=== PATIENT | male | born 1985 | race Caucasian/White ===

== ENCOUNTER 2024-11-13 11:19 | Emergency (ER) | payer OTHER, SELFPAY ==
--- NOTE | ~2024-11-13 | US_ITS ---
TESTICULAR ULTRASOUND (Doppler ultrasound interrogation techniques used as needed for this exam.) Ordering provider: Letitia Byrd MD History: . testicular pain . Comparison: None. FINDINGS: TESTICLES: Normal in size. The right measures 4 x 2.2x 2.9 cm and the left measures 3.5x 2.6x 2.7 cm. Normal echogenicity bilaterally without mass lesion. Normal Doppler flow bilaterally. Appendix test is is seen measuring 0.6 x 0.5 x 0.7 cm. Increased vascularity in the left testis. EPIDIDYMIDES: The right is Normal in size.. The left is enlarged heterogenous in the temporal area No rmal echogenicity bilaterally. Both demonstrate normal Doppler flow. HYDROCELE: Small right and septated large left VARICOCELE: None. OTHER ABNORMALITY: None seen. IMPRESSION: left epididymitis with possible epididymoorchitis. Bilateral hydrocele larger on the left with septat ion. Otherwise, normal testicular ultrasound. Reviewed, dictated and finalized at location A. IMPRESSION: left epididymitis with possible epididymoorchitis. Bilateral hydrocele larger o n the left with septation. Otherwise, normal testicular ultrasound.
[2024-11-13 11:37] VITALS: BP 168/100; PULSE 92; RESP 16; TEMP 36.8; O2SAT 100
--- OUTSIDE RECORDS SUMMARY | 2024-11-13 12:28 | XMS_ITS | Clinical Summary ---
Author Organization [facility] [employer] Address [address] [place] [address] Care Team Providers Care Mine Safety Engineer Name Role Phone Tu Richardson MD Primary Care Provider [phone] Source Comments [facility] [employer],non-owned Affiliates and Associated Physician Practices is amultiple site organization consisting of ambulatory clinics and hospital sitesin [place], [place], [place] and [place]. This disclosure is being madepursuant to the Care Everywhere program and may not contain all information available regarding this patient. Last updated 18.[facility] [employer] Allergies Active Allergy Reactions Criticality Noted Date Comments Cefaclor Rash Medium 08/19/2013 Active Problems Problem Noted Date Diagnosed Date Fracture of other specified skull and facial bones, right side, initial encounter for closed fracture 09/23/2013 Closed fracture of malar bone 09/23/2013 Closed fracture of maxillary bone 09/23/2013 Contusion of lung 08/27/2013 Laceration of spleen 08/27/2013 Pneumonitis due to inhalation of food and vomit 08/27/2013 Other fracture of base of sk ull, initial encounter for closed fracture 08/27/2013 Closed fracture of thoracic vertebra 08/27/2013 Unspecified fracture of shaf t of left tibia, initial encounter for open fracture type I or II 08/27/2013 Closed fracture of rib of right side 08/27/2013 Hypoxemia 08/27/2013 Hemothorax 08/27/2013 Immunizations Immunization Administration Dates Next Due TD (ADULT), 5 LF TETANUS TOXOID, ADSORBED, PF Social History Tobacco Use Types Packs/Day Years Used Date Smoking Tobacco: Every Day Alcohol Use Standard Drinks/Week Comments Yes 0 (1 standard drink = 0.6 oz pur e alcohol) Sex and Gender Information Value Date Recorded Sex Assigned at Not on file 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 Gender Identity Not on file Sexual Orientation Not on file Last Filed Vital Signs Vital Sign Reading Time Taken Comments Blood Pressure 110/70 11/30/2013 11:41 AM CDT Pulse 66 09/22/2013 9:56 AM CDT Temperature 36.3 C (97.4 F) 12/21/2013 9:58 AM CDT Respiratory Rate 18 08/27/2013 8:11 AM CDT Oxygen Saturation 98% 08/27/2013 8:11 AM CDT Inhaled Oxygen Concentration - - Weight 66.2 kg (146 lb) 12/21/2013 9:58 AM CDT Height 182.9 cm (6') 12/21/2013 9:58 AM CDT Body Mass Index 19.8 12/21/2013 9:58 AM CDT Plan of Treatment Health Maintenance Due Date Last Done Comments HIV SCREENING 09/04/2002 HEPATITIS C SCREENING 08/31/2005 HEPATITIS B VACCINE (1 of 3 - 19+ 3-dose series) 09/04/2006 HPV VACCINE (1 - 3-dose SCDM series) 09/04/2014 DTAP/TDAP/TD VACCINES (2 - T d or Tdap) 08/20/2023 08/19/2013 COVID-19 VACCINE (1 - 2023-2 5 season) 2024 DEPRESSION SCREENING 05/03/2024 INFLUENZA VACCINE (#1) 2025 ZOSTER VACCINE (1 of 2) 09/04/2037 HIB VACCINE Aged Out No longer eligi ble based on patient's age to complete this topic MENINGOCOCCAL (Group B) VACC INE SHARED DECISION-MAKING Aged Out No longer eligibl e based on patient's age to complete this topic MENINGOCOCCAL GROUPS A/C/Y/W VACCINE Aged Out No longer eligible b ased on patient's age to complete this topic PNEUMOCOCCAL VACCINE Aged Out No long er eligible based on patient's age to complete this topic Care Teams Mine Safety Engineer Relationship Specialty Start Date End Date Tu Richardson MD PCP - General 08/28/13
--- OUTSIDE RECORDS SUMMARY | 2024-11-13 12:29 | XMS_ITS | Clinical Summary ---
Author Organization [facility] Address [address] [place] [address] Care Team Providers Care Prototype Special Build Name Role Phone None, Provider MD Primary Care Provider Unavaila ble Allergies Active Allergy Reactions Criticality Noted Date Comments Cefaclor Unknown 07/14/2022 Medications diclofenac EC (VOLTAREN) 75 MG tablet Take 1 tablet (75 mg total) by mouth 2 (two) times daily. 60 tablet 07/14/2022 Active methocarbamol (ROBAXIN) 750 MG Tab Take 1 tablet (750 mg total) by mouth every 4 (four) hours. 30 tablet 07/14/2022 Active Social History Tobacco Use Types Packs/Day Years Used Date Smoking Tobacco: Every Day Cigarettes Smokeless Tobacco: Never Tobacco Cessation:Ready to Q uit: Not Asked; Counseling Given: Not Answered Alcohol Use Standard Drinks/Week Comments Yes 0 (1 standard drink = 0.6 oz pur e alcohol) Sex and Gender Information Value Date Recorded Sex Assigned at Not on file Legal Sex Male 7:07 PM CDT Gender Identity Not on file Sexual Orientation Not on file Last Filed Vital Signs Vital Sign Reading Time Taken Comments Blood Pressure 172/113 07/14/2022 10:05 AM CDT Pulse 96 07/14/2022 10:05 AM CDT Temperature 36.1 C (97 F) 07/14/2022 10:05 AM CDT Respiratory Rate 20 07/14/2022 10:05 AM CDT Oxygen Saturation 99% 07/14/2022 10:05 AM CDT Inhaled Oxygen Concentration - - Weight 93.6 kg (206 lb 5.6 oz) 07/14/2022 10:05 AM CDT Height 177.8 cm (5' 10) 07/14/2022 10:05 AM CDT Body Mass Index 29.61 07/14/2022 10:05 AM CDT Plan of Treatment Health Maintenance Due Date Last Done Comments Annual Physical 09/04/1990 Hepatitis C 09/04/2005 Pneumococcal Vaccine: Pediatrics (0 to 5 Years) and At-Risk Patients (6 to 49 Years) (1 of 2 - PCV) 09/04/2006 DTaP, Tdap and Td Vaccines ( 1 - Tdap) 08/20/2013 08/19/2013 COVID-19 Vaccine (1 - 2023-2 5 season) 2024 Hepatitis B Vaccines Completed 09/06/1997, 04/10/1997, 03/08/1997 HPV Vaccines Aged Out No longer eligi ble based on patient's age to complete this topic Meningococcal B Vaccine Aged Out No l onger eligible based on patient's age to complete this topic Meningococcal Vaccine Aged Out No vishnu regine eligible based on patient's age to complete this topic RSV Immunizations Under 20 Months Aged Out No longer eligible b ased on patient's age to complete this topic Insurance Care Teams Prototype Special Build Relationship Specialty Start Date End Date None, Provider, MD PCP - General UNKNOWN PHYSICIAN SPECIALTY 07/14/22
[2024-11-13 12:36] VITALS: BP 162/104; PULSE 100; PULSE 86; RESP 17; RESP 18; TEMP 37; O2SAT 100
--- NOTE | 2024-11-13 13:08 | ED_ITS ---
HPI - Male Genitourinary General Chief complaint: Urogenital-Male Stated complaint: testicular pain edema Time Seen by Provider: 11/13/24 12:03 History of Present Illness HPI Narrative: Pt presents with left testicle and scrotal pain and swelling today. P{t denies discharge or urinary symptosm. Pt is sexually active with one woman for 7 months. Pt has some dull pain in low abdomen. from pain in testicle. Related Data Allergies Allergy/AdvReac Type Severity Reaction Status Date / Time cefaclor (From Ceclor) Allergy Mild Unknown Verified 11/13/24 12:42 Review of Systems 2 Review of Systems: All systems reviewed & are unremarkable except as noted in HPI and below Exam Const: General: healthy appearing and no acute distress Nutritional Appearance: well nourished Limitations: no limitations Eyes: EOM: EOMs intact bilaterally Neck: Neck: normal visual inspection Chest: Chest palpation & inspection: normal inspection of the chest Resp: Effort & Inspection: normal respiratory effort Cardio: Rate: regular rate Rhythm: regular rhythm GI: GI Palp: Yes Soft to palpation and No Tenderness to palpation present (GI) Auscultation: normal bowel sounds : Penis: Yes normal penis Scrotum: scrotal swelling (and mild erythem vani left side) on the left Testes: epididymal tenderness, testicular swelling and testicular tenderness Other: testicular and epiddidymal tenderness on left Back/Spine/Pelvis: Back: no CVA tenderness Skin: General skin exam: normal color Wounds: no wounds Neuro: General: patient oriented x3, moves all extremities, no meningeal signs and no focal motor deficits Cranial nerves: Yes CN's II-XII intact bilaterally Speech: normal speech Extrem: General: normal to inspection and no clubbing, cyanosis or edema Psych: Mental Status: mental status grossly normal Affect: normal affect Attitude: cooperative Course Vital Signs Vital signs: Vital Signs Temperature 98.2 F 11/13/24 11:37 Pulse Rate 92 11/13/24 11:37 Respiratory Rate 16 11/13/24 11:37 Blood Pressure 168/100 H 11/13/24 11:37 Pulse Oximetry 100 11/13/24 11:37 Temperature 98.6 F 11/13/24 12:36 Pulse Rate 92 11/13/24 13:24 Respiratory Rate 16 11/13/24 13:24 Blood Pressure 158/102 H 11/13/24 13:24 Pulse Oximetry 100 11/13/24 13:24 MDM - Male Genitourinary MDM Narrative Medical decision making narrative: Pt has swoolen tender testicle and epididymis on left. will get sono to rule out infection not likely torsion. sono shows epididymitis and early orchitis. Pt says he does not believe it is and STI and does not want the rocephin with the doxy, just the doxy. Discharge Plan Discharge Clinical Impression: Epididymitis, Orchitis Patient Disposition: Home Condition: Stable Instructions: Antibiotic Form, Epididymo-Orchitis (ED) Patient Language: Macedonian Prescriptions: New doxycycline monohydrate 100 mg capsule 100 mg PO BID Qty: 20 0RF naproxen [Naprosyn] 500 mg tablet 500 mg PO BID Qty: 20 0RF Follow-up/Referrals: James Magallon MD [Physician] - UNKNOWN,DOCTOR [Primary Care Provider] -
[2024-11-13 13:24] VITALS: BP 158/102; PULSE 92; RESP 16; O2SAT 100
== END 2024-11-13 13:24 | disposition home or self-care (01) ==
PROVIDERS: Emergency Provider Emergency Medicine
DX: N45.3 Epididymo-orchitis (principal)
CPT/HCPCS: 76870; 93976; 99284